=== PATIENT | female | born 1980 | race African-American/Black ===

== ENCOUNTER 2023-01-13 11:15 | Emergency (ER) | payer OTHER, BC ==
[2023-01-13] MEDS ORDERED: Ketorolac Tromethamine 30 MG/ML VIAL ONE (11:46)
== END 2023-01-13 12:41 | disposition home or self-care (01) ==
LOC: CSHERS 11:15
DX: R07.89 Other chest pain (principal); V89.2XXA Person injured in unspecified motor-vehicle accident, traffic, initial encounter
CPT/HCPCS: 71045; 96372; J1885

== ENCOUNTER 2023-01-17 14:34 | Emergency (ER) | payer BC | END 2023-01-17 17:20 | disposition home or self-care (01) | LOC: CSHERS 14:34 | DX: S16.1XXA Strain of muscle, fascia and tendon at neck level, initial encounter (principal); V49.9XXA Car occupant (driver) (passenger) injured in unspecified traffic accident, initial encounter | CPT/HCPCS: 70450; 72125 ==